=== PATIENT | male | born 1995 | race Caucasian/White ===

== ENCOUNTER 2022-05-22 19:43 | Inpatient (IN) ==
[2022-05-22] MEDS ORDERED: Fluconazole 100 MG TABLET PO STA (20:37)
[2022-05-22 20:58] LABS: Basophils % 0.4 %; Eosinophils # 0.3 K/mcL (0.0-0.6); Eosinophils % 3.6 %; Hemoglobin 10.7 g/dL (12.9-16.9); Immature Granulocytes % 0.3 % (0-4); Lymphocytes # 3.4 K/mcL (0.6-4.6); Lymphocytes % 36.7 %; Mean Corpuscular HGB Conc 30.6 g/dL (31.6-35.5); Mean Corpuscular Volume 81.8 fL (83.0-100.0); Mean Platelet Volume 9.6 fL (9.4-12.4); Monocytes # 0.6 K/mcL (0.0-1.3); Neutrophils # 4.8 K/mcL (1.6-8.9); Platelet Count 334 K/mcL (140-400); Red Blood Count 4.28 M/mcL (4.19-5.50); Red Cell Distribution Width 16.8 % (11.5-14.5); White Blood Count 9.2 K/mcL (4.3-11.1)
[2022-05-22 21:16] LABS: Platelet Estimate Normal (Normal)
[2022-05-22 21:17] LABS: BUN/Creatinine Ratio 19 (6-26); Blood Urea Nitrogen 13 mg/dL (6-20); Calcium 9.4 mg/dL (8.6-10.3); Carbon Dioxide 26 mEq/L (23-29); Chloride 101 mEq/L (98-107); Glucose 69 mg/dL (70-105); Osmolality,Calculated 284 (280-300); Potassium 3.9 mEq/L (3.5-5.1); Sodium 138 mEq/L (136-145)
[2022-05-22] MEDS ORDERED: Naloxone 0.4 MG/ML INJ IVP PRN (22:48)
[2022-05-22] MEDS ORDERED: Ondansetron 4 MG/2 ML VIAL IVP PRN (22:48)
[2022-05-23] MEDS: Acetaminophen 325 MG TABLET PO PRN ×2 (01:39→09:43)
[2022-05-23] MEDS: Melatonin 3 MG TABLET PO PRN (01:44)
[2022-05-23 07:08] LABS: Basophils # 0.1 K/mcL (0.0-0.2); Basophils % 0.4 %; Eosinophils # 0.5 K/mcL (0.0-0.6); Eosinophils % 4.3 %; Hematocrit 31.1 % (37.5-50.1); Hemoglobin 9.4 g/dL (12.9-16.9); Immature Granulocytes % 0.4 % (0-4); Lymphocytes # 3.6 K/mcL (0.6-4.6); Lymphocytes % 30.2 %; Mean Corpuscular HGB Conc 30.2 g/dL (31.6-35.5); Mean Corpuscular Hemoglobin 24.6 pg (28.0-33.3); Mean Corpuscular Volume 81.4 fL (83.0-100.0); Mean Platelet Volume 9.7 fL (9.4-12.4); Monocytes # 1.1 K/mcL (0.0-1.3); Monocytes % 9.5 %; Neutrophils # 6.5 K/mcL (1.6-8.9); Platelet Count 491 K/mcL (140-400); Red Blood Count 3.82 M/mcL (4.19-5.50); Segmented Neutrophils % 55.2 %; White Blood Count 11.8 K/mcL (4.3-11.1)
[2022-05-23 07:17] LABS: INR 1.6; Prothrombin Time 17.3 Seconds (9.4-12.1)
[2022-05-23 07:20] LABS: Activated Partial Thrombo Time 33.8 Seconds (26.0-36.0)
[2022-05-23 07:28] LABS: Alanine Aminotransferase 7 Units/L (7-52); Albumin 3.2 g/dL (3.5-5.7); Albumin/Globulin Ratio 0.9 (1.1-2.2); Alkaline Phosphatase 71 Units/L (34-104); Aspartate Amino Transferase 8 Units/L (13-39); BUN/Creatinine Ratio 16 (6-26); Bilirubin,Total 0.4 mg/dL (0.3-1.0); Blood Urea Nitrogen 11 mg/dL (6-20); Calcium 8.3 mg/dL (8.6-10.3); Carbon Dioxide 28 mEq/L (23-29); Chloride 104 mEq/L (98-107); Globulin 3.5 g/dL (2.4-3.5); Glucose 91 mg/dL (70-105); Magnesium 1.7 mg/dL (1.6-2.6); Osmolality,Calculated 289 (280-300); Phosphorous 4.2 mg/dL (2.7-4.5); Potassium 3.6 mEq/L (3.5-5.1); Sodium 140 mEq/L (136-145); Total Protein 6.7 g/dL (6.4-8.9)
[2022-05-23] MEDS: Lactobacillus 1 EACH CAP.SPRINK PO SCH ×2 (09:43→21:49)
[2022-05-23] MEDS: Fluconazole 100 MG TABLET PO SCH (09:43)
[2022-05-23] MEDS ORDERED: traZODone 50 MG TABLET PO PRN (10:41)
[2022-05-23] MEDS ORDERED: Furosemide 20 MG TABLET PO PRN (10:41)
[2022-05-23] MEDS: *HR* OxyCODONE Immed Rel 5 MG TABLET PO PRN ×3 (10:59→23:55)
[2022-05-23] MEDS: atenoloL 25 MG TABLET PO SCH (11:03)
[2022-05-23] MEDS: Aspirin Enteric Coated 81 MG Tablet PO SCH (11:03)
[2022-05-23] MEDS: Nicotine 14 MG PATCH.TD24 TD SCH (11:03)
[2022-05-23] MEDS: Gabapentin 300 MG CAPSULE PO SCH ×2 (16:06→21:50)
[2022-05-24 07:35] LABS: Basophils % 0.4 %; Eosinophils # 0.4 K/mcL (0.0-0.6); Eosinophils % 4.4 %; Hematocrit 29.7 % (37.5-50.1); Hemoglobin 9.4 g/dL (12.9-16.9); Immature Granulocytes % 0.4 % (0-4); Lymphocytes # 2.4 K/mcL (0.6-4.6); Mean Corpuscular HGB Conc 31.6 g/dL (31.6-35.5); Mean Corpuscular Hemoglobin 25.5 pg (28.0-33.3); Mean Corpuscular Volume 80.7 fL (83.0-100.0); Mean Platelet Volume 9.4 fL (9.4-12.4); Monocytes # 0.6 K/mcL (0.0-1.3); Monocytes % 7.7 %; Neutrophils # 4.6 K/mcL (1.6-8.9); Platelet Count 444 K/mcL (140-400); Red Blood Count 3.68 M/mcL (4.19-5.50); Red Cell Distribution Width 16.8 % (11.5-14.5); Segmented Neutrophils % 57.1 %; White Blood Count 8.1 K/mcL (4.3-11.1)
[2022-05-24 07:50] LABS: BUN/Creatinine Ratio 17 (6-26); Blood Urea Nitrogen 11 mg/dL (6-20); Calcium 9.1 mg/dL (8.6-10.3); Carbon Dioxide 28 mEq/L (23-29); Chloride 102 mEq/L (98-107); Glucose 89 mg/dL (70-105); Osmolality,Calculated 285 (280-300); Potassium 4.1 mEq/L (3.5-5.1); Sodium 138 mEq/L (136-145)
[2022-05-24] MEDS: Nicotine 14 MG PATCH.TD24 TD SCH (08:24)
[2022-05-24] MEDS: Fluconazole 100 MG TABLET PO SCH (08:24)
[2022-05-24] MEDS: atenoloL 25 MG TABLET PO SCH (08:24)
[2022-05-24] MEDS: *HR* OxyCODONE Immed Rel 5 MG TABLET PO PRN ×2 (08:25→16:38)
[2022-05-24] MEDS: Aspirin Enteric Coated 81 MG Tablet PO SCH (08:25)
[2022-05-24] MEDS: Gabapentin 300 MG CAPSULE PO SCH ×3 (08:25→21:20)
[2022-05-24] MEDS: Lactobacillus 1 EACH CAP.SPRINK PO SCH ×2 (08:25→21:20)
[2022-05-24] MEDS: Melatonin 3 MG TABLET PO PRN (21:20)
[2022-05-25] MEDS ORDERED: *HR* Enoxaparin 40 MG/0.4 ML SYRINGE SQ SCH (06:00)
[2022-05-25] MEDS: atenoloL 25 MG TABLET PO SCH (08:46)
[2022-05-25] MEDS: Aspirin Enteric Coated 81 MG Tablet PO SCH (08:46)
[2022-05-25] MEDS: Fluconazole 100 MG TABLET PO SCH (08:46)
[2022-05-25] MEDS: Lactobacillus 1 EACH CAP.SPRINK PO SCH ×2 (08:46→21:42)
[2022-05-25] MEDS: Gabapentin 300 MG CAPSULE PO SCH ×3 (08:46→21:42)
[2022-05-25] MEDS: *HR* OxyCODONE Immed Rel 5 MG TABLET PO PRN ×3 (08:46→21:41)
[2022-05-25] MEDS: Nicotine 14 MG PATCH.TD24 TD SCH (08:49)
[2022-05-25] MEDS: *HR* Heparin 5,000 UNIT/ML VIAL SQ SCH (18:16)
[2022-05-25] MEDS: Melatonin 3 MG TABLET PO PRN (21:42)
[2022-05-26] MEDS: *HR* Heparin 5,000 UNIT/ML VIAL SQ SCH ×2 (05:27→17:40)
[2022-05-26] MEDS: Fluconazole 100 MG TABLET PO SCH (09:57)
[2022-05-26] MEDS: Aspirin Enteric Coated 81 MG Tablet PO SCH (09:57)
[2022-05-26] MEDS: atenoloL 25 MG TABLET PO SCH (09:58)
[2022-05-26] MEDS: Lactobacillus 1 EACH CAP.SPRINK PO SCH ×2 (09:58→21:23)
[2022-05-26] MEDS: Gabapentin 300 MG CAPSULE PO SCH ×3 (09:58→21:23)
[2022-05-26] MEDS: Nicotine 14 MG PATCH.TD24 TD SCH (10:05)
[2022-05-26] MEDS: *HR* OxyCODONE Immed Rel 5 MG TABLET PO PRN ×2 (11:28→17:56)
[2022-05-26] MEDS: Melatonin 3 MG TABLET PO PRN (21:23)
[2022-05-27] MEDS: *HR* OxyCODONE Immed Rel 5 MG TABLET PO PRN ×3 (03:14→17:27)
[2022-05-27] MEDS: *HR* Heparin 5,000 UNIT/ML VIAL SQ SCH ×2 (05:51→17:26)
[2022-05-27 07:40] LABS: Basophils # 0.1 K/mcL (0.0-0.2); Basophils % 0.7 %; Eosinophils # 0.3 K/mcL (0.0-0.6); Eosinophils % 3.3 %; Hematocrit 28.9 % (37.5-50.1); Hemoglobin 8.8 g/dL (12.9-16.9); Immature Granulocytes % 0.3 % (0-4); Lymphocytes # 2.4 K/mcL (0.6-4.6); Lymphocytes % 32.1 %; Mean Corpuscular HGB Conc 30.4 g/dL (31.6-35.5); Mean Corpuscular Hemoglobin 24.5 pg (28.0-33.3); Mean Corpuscular Volume 80.5 fL (83.0-100.0); Mean Platelet Volume 9.7 fL (9.4-12.4); Monocytes # 0.6 K/mcL (0.0-1.3); Neutrophils # 4.2 K/mcL (1.6-8.9); Platelet Count 392 K/mcL (140-400); Red Blood Count 3.59 M/mcL (4.19-5.50); Red Cell Distribution Width 16.5 % (11.5-14.5); Segmented Neutrophils % 55.6 %; White Blood Count 7.5 K/mcL (4.3-11.1)
[2022-05-27] MEDS: Nicotine 14 MG PATCH.TD24 TD SCH (07:48)
[2022-05-27] MEDS: atenoloL 25 MG TABLET PO SCH (07:49)
[2022-05-27] MEDS: Fluconazole 100 MG TABLET PO SCH (07:49)
[2022-05-27] MEDS: Aspirin Enteric Coated 81 MG Tablet PO SCH (07:49)
[2022-05-27] MEDS: Gabapentin 300 MG CAPSULE PO SCH ×3 (07:49→22:10)
[2022-05-27] MEDS: Lactobacillus 1 EACH CAP.SPRINK PO SCH ×2 (07:49→22:10)
[2022-05-27 07:58] LABS: BUN/Creatinine Ratio 13 (6-26); Blood Urea Nitrogen 9 mg/dL (6-20); Calcium 9.1 mg/dL (8.6-10.3); Carbon Dioxide 30 mEq/L (23-29); Chloride 102 mEq/L (98-107); Glucose 119 mg/dL (70-105); Magnesium 1.7 mg/dL (1.6-2.6); Osmolality,Calculated 290 (280-300); Potassium 3.5 mEq/L (3.5-5.1); Sodium 140 mEq/L (136-145)
[2022-05-27] MEDS: Melatonin 3 MG TABLET PO PRN (22:10)
[2022-05-27] MEDS: Acetaminophen 325 MG TABLET PO PRN (22:20)
[2022-05-28] MEDS: *HR* Heparin 5,000 UNIT/ML VIAL SQ SCH ×2 (06:36→16:50)
[2022-05-28] MEDS: Aspirin Enteric Coated 81 MG Tablet PO SCH (08:39)
[2022-05-28] MEDS: Nicotine 14 MG PATCH.TD24 TD SCH (08:39)
[2022-05-28] MEDS: Gabapentin 300 MG CAPSULE PO SCH ×2 (08:40→16:49)
[2022-05-28] MEDS: Fluconazole 100 MG TABLET PO SCH (08:40)
[2022-05-28] MEDS: atenoloL 25 MG TABLET PO SCH (08:40)
[2022-05-28] MEDS: Lactobacillus 1 EACH CAP.SPRINK PO SCH (08:40)
[2022-05-28] MEDS: *HR* OxyCODONE Immed Rel 5 MG TABLET PO PRN ×2 (08:51→16:50)
[2022-05-28 16:07] VITALS: BP 131/81; PULSE 87; RESP 18; TEMP 97.6; O2SAT 100
== END 2022-05-28 18:14 | disposition other institution (70) | DRG 193 ==
LOC: INPPIK 19:43 → EMEROOPIK 19:43 → INPPIK 23:20
PROVIDERS: ADMIT Internal Medicine; ATTEND Internal Medicine

== ENCOUNTER 2022-05-28 14:53 | Inpatient (IN) ==
[2022-05-28] MEDS ORDERED: Furosemide 20 MG TABLET PO PRN (15:19)
[2022-05-28] MEDS ORDERED: Melatonin 3 MG TABLET PO PRN (15:19)
[2022-05-28] MEDS ORDERED: SOD CHLORIDE IV SCH (15:30)
[2022-05-28] MEDS ORDERED: VANCOMYCIN IV SCH (15:30)
[2022-05-28] MEDS ORDERED: [UNRECOGNIZED DRUG - OTHER] IV SCH (15:30)
[2022-05-28] MEDS ORDERED: *HR* Heparin 5,000 UNIT/ML VIAL SQ SCH (18:00)
[2022-05-28] MEDS: Ketorolac 30 MG/ML VIAL IVP SCH (18:48)
[2022-05-28] MEDS: Lactobacillus 1 EACH CAP.SPRINK PO SCH (23:22)
[2022-05-28] MEDS: Gabapentin 300 MG CAPSULE PO SCH (23:23)
[2022-05-28] MEDS: *HR* OxyCODONE Immed Rel 5 MG TABLET PO SCH (23:24)
[2022-05-29] MEDS: Ketorolac 30 MG/ML VIAL IVP SCH ×4 (01:49→18:38)
[2022-05-29] MEDS: *HR* OxyCODONE Immed Rel 5 MG TABLET PO SCH ×4 (03:32→21:35)
[2022-05-29] MEDS: Gabapentin 300 MG CAPSULE PO SCH ×3 (07:43→21:35)
[2022-05-29] MEDS: Lactobacillus 1 EACH CAP.SPRINK PO SCH ×2 (07:43→21:35)
[2022-05-29] MEDS: *HR* Heparin 5,000 UNIT/ML VIAL SQ SCH ×2 (07:56→18:32)
[2022-05-29] MEDS: Nicotine 14 MG PATCH.TD24 TD SCH (10:08)
[2022-05-29] MEDS: Aspirin Enteric Coated 81 MG Tablet PO SCH (10:08)
[2022-05-29] MEDS: atenoloL 25 MG TABLET PO SCH (10:08)
[2022-05-29] MEDS: Fluconazole 150 MG TABLET PO SCH (10:08)
[2022-05-30] MEDS: Ketorolac 30 MG/ML VIAL IVP SCH ×3 (00:21→12:15)
[2022-05-30] MEDS: *HR* OxyCODONE Immed Rel 5 MG TABLET PO SCH ×4 (04:13→21:30)
[2022-05-30] MEDS: *HR* Heparin 5,000 UNIT/ML VIAL SQ SCH ×2 (06:37→18:11)
[2022-05-30] MEDS: Gabapentin 300 MG CAPSULE PO SCH ×3 (08:52→21:29)
[2022-05-30] MEDS: Fluconazole 150 MG TABLET PO SCH (08:52)
[2022-05-30] MEDS: Aspirin Enteric Coated 81 MG Tablet PO SCH (08:53)
[2022-05-30] MEDS: Nicotine 14 MG PATCH.TD24 TD SCH (08:53)
[2022-05-30] MEDS: atenoloL 25 MG TABLET PO SCH (08:53)
[2022-05-30] MEDS: Lactobacillus 1 EACH CAP.SPRINK PO SCH ×2 (08:53→21:26)
[2022-05-30 10:25] LABS: Basophils % 0.4 %; Eosinophils # 0.2 K/mcL (0.0-0.6); Eosinophils % 2.8 %; Hematocrit 31.2 % (37.5-50.1); Hemoglobin 9.5 g/dL (12.9-16.9); Immature Granulocytes % 0.3 % (0-4); Lymphocytes # 2.8 K/mcL (0.6-4.6); Lymphocytes % 39.4 %; Mean Corpuscular HGB Conc 30.4 g/dL (31.6-35.5); Mean Corpuscular Volume 78.8 fL (83.0-100.0); Mean Platelet Volume 9.5 fL (9.4-12.4); Monocytes # 0.5 K/mcL (0.0-1.3); Neutrophils # 3.6 K/mcL (1.6-8.9); Platelet Count 414 K/mcL (140-400); Red Blood Count 3.96 M/mcL (4.19-5.50); Red Cell Distribution Width 15.9 % (11.5-14.5); Segmented Neutrophils % 50.1 %; White Blood Count 7.2 K/mcL (4.3-11.1)
[2022-05-30 10:44] LABS: Alanine Aminotransferase 7 Units/L (7-52); Albumin 3.2 g/dL (3.5-5.7); Albumin/Globulin Ratio 0.9 (1.1-2.2); Alkaline Phosphatase 85 Units/L (34-104); Aspartate Amino Transferase 11 Units/L (13-39); BUN/Creatinine Ratio 12 (6-26); Bilirubin,Total 0.2 mg/dL (0.3-1.0); Blood Urea Nitrogen 9 mg/dL (6-20); Calcium 9.1 mg/dL (8.6-10.3); Carbon Dioxide 27 mEq/L (23-29); Chloride 106 mEq/L (98-107); Globulin 3.5 g/dL (2.4-3.5); Glucose 89 mg/dL (70-105); Osmolality,Calculated 288 (280-300); Sodium 140 mEq/L (136-145); Total Protein 6.7 g/dL (6.4-8.9)
[2022-05-30] MEDS ORDERED: Vancomycin 500 MG in 0.9 % Sodium Chloride Mini Bag 100 ML IVPB ONE (21:00)
[2022-05-30] MEDS: Melatonin 3 MG TABLET PO SCH (21:28)
[2022-05-30] MEDS: traZODone 50 MG TABLET PO PRN (21:28)
[2022-05-30] MEDS: Ketorolac 30 MG/ML VIAL IVP PRN (22:30)
[2022-05-31] MEDS: *HR* Heparin 5,000 UNIT/ML VIAL SQ SCH ×2 (06:09→18:12)
[2022-05-31] MEDS: *HR* OxyCODONE Immed Rel 5 MG TABLET PO SCH ×4 (08:50→20:16)
[2022-05-31] MEDS: Fluconazole 150 MG TABLET PO SCH (09:05)
[2022-05-31] MEDS: Vancomycin 1,250 MG/262.5 ML IV.SOLN IVPB SCH ×2 (09:05→20:17)
[2022-05-31] MEDS: Lactobacillus 1 EACH CAP.SPRINK PO SCH ×2 (09:06→20:13)
[2022-05-31] MEDS: Aspirin Enteric Coated 81 MG Tablet PO SCH (09:06)
[2022-05-31] MEDS: Nicotine 14 MG PATCH.TD24 TD SCH (09:06)
[2022-05-31] MEDS: Gabapentin 300 MG CAPSULE PO SCH ×3 (09:06→20:14)
[2022-05-31] MEDS: atenoloL 25 MG TABLET PO SCH (09:07)
[2022-05-31] MEDS: Ketorolac 30 MG/ML VIAL IVP PRN ×2 (10:45→16:30)
[2022-05-31] MEDS: Acetaminophen 325 MG TABLET PO PRN (15:19)
[2022-05-31] MEDS: Melatonin 3 MG TABLET PO SCH (20:13)
[2022-05-31] MEDS: traZODone 50 MG TABLET PO PRN (20:14)
[2022-06-01] MEDS: *HR* Heparin 5,000 UNIT/ML VIAL SQ SCH ×2 (06:03→18:32)
[2022-06-01] MEDS: Ketorolac 30 MG/ML VIAL IVP PRN ×3 (06:10→23:57)
[2022-06-01] MEDS: Vancomycin 1,250 MG/262.5 ML IV.SOLN IVPB SCH ×2 (10:47→21:20)
[2022-06-01] MEDS: Lactobacillus 1 EACH CAP.SPRINK PO SCH ×2 (10:52→21:18)
[2022-06-01] MEDS: Aspirin Enteric Coated 81 MG Tablet PO SCH (10:52)
[2022-06-01] MEDS: Fluconazole 150 MG TABLET PO SCH (10:52)
[2022-06-01] MEDS: Gabapentin 300 MG CAPSULE PO SCH ×3 (10:52→21:18)
[2022-06-01] MEDS: *HR* OxyCODONE Immed Rel 5 MG TABLET PO SCH ×4 (10:53→21:29)
[2022-06-01] MEDS: Nicotine 14 MG PATCH.TD24 TD SCH (10:56)
[2022-06-01] MEDS: atenoloL 25 MG TABLET PO SCH (10:56)
[2022-06-01] MEDS: Melatonin 3 MG TABLET PO SCH (21:19)
[2022-06-02] MEDS: *HR* OxyCODONE Immed Rel 5 MG TABLET PO SCH ×4 (03:08→23:40)
[2022-06-02] MEDS: *HR* Heparin 5,000 UNIT/ML VIAL SQ SCH ×2 (06:26→18:03)
[2022-06-02 07:45] VITALS: RESP 16
[2022-06-02] MEDS: Fluconazole 100 MG TABLET PO SCH (09:33)
[2022-06-02] MEDS: Aspirin Enteric Coated 81 MG Tablet PO SCH (09:33)
[2022-06-02] MEDS: atenoloL 25 MG TABLET PO SCH (09:33)
[2022-06-02] MEDS: Lactobacillus 1 EACH CAP.SPRINK PO SCH ×2 (09:33→23:39)
[2022-06-02] MEDS: Nicotine 14 MG PATCH.TD24 TD SCH (09:33)
[2022-06-02] MEDS: Gabapentin 300 MG CAPSULE PO SCH ×3 (09:33→23:40)
[2022-06-02] MEDS: Vancomycin 1,250 MG/262.5 ML IV.SOLN IVPB SCH ×2 (09:34→23:41)
[2022-06-02] MEDS: Ketorolac 30 MG/ML VIAL IVP PRN (14:00)
[2022-06-02] MEDS: Acetaminophen 325 MG TABLET PO PRN (18:06)
[2022-06-02 18:42] VITALS: TEMP 98.3
[2022-06-02] MEDS ORDERED: amLODIPine 5 MG TABLET PO SCH (21:00)
[2022-06-02] MEDS: Melatonin 3 MG TABLET PO SCH (23:39)
[2022-06-03] MEDS: *HR* OxyCODONE Immed Rel 5 MG TABLET PO SCH ×2 (03:46→08:13)
[2022-06-03 06:20] LABS: Hematocrit 32.9 % (37.5-50.1); Hemoglobin 10.2 g/dL (12.9-16.9); Mean Corpuscular Hemoglobin 24.5 pg (28.0-33.3); Mean Corpuscular Volume 79.1 fL (83.0-100.0); Mean Platelet Volume 9.6 fL (9.4-12.4); Platelet Count 331 K/mcL (140-400); Red Blood Count 4.16 M/mcL (4.19-5.50); Red Cell Distribution Width 16.6 % (11.5-14.5); White Blood Count 6.7 K/mcL (4.3-11.1)
[2022-06-03 06:40] LABS: BUN/Creatinine Ratio 12 (6-26); Blood Urea Nitrogen 9 mg/dL (6-20); Calcium 9.7 mg/dL (8.6-10.3); Carbon Dioxide 29 mEq/L (23-29); Chloride 104 mEq/L (98-107); Glucose 83 mg/dL (70-105); Osmolality,Calculated 290 (280-300); Sodium 141 mEq/L (136-145)
[2022-06-03 06:47] VITALS: BP 131/81; PULSE 74; O2SAT 97
[2022-06-03] MEDS: *HR* Heparin 5,000 UNIT/ML VIAL SQ SCH (07:44)
[2022-06-03] MEDS: Aspirin Enteric Coated 81 MG Tablet PO SCH (08:13)
[2022-06-03] MEDS: Gabapentin 300 MG CAPSULE PO SCH (08:13)
[2022-06-03] MEDS: Lactobacillus 1 EACH CAP.SPRINK PO SCH (08:13)
[2022-06-03] MEDS: Fluconazole 100 MG TABLET PO SCH (08:13)
[2022-06-03] MEDS: atenoloL 25 MG TABLET PO SCH (08:14)
[2022-06-03] MEDS: Nicotine 14 MG PATCH.TD24 TD SCH (13:24)
[2022-06-03] MEDS: Vancomycin 1,250 MG/262.5 ML IV.SOLN IVPB SCH (13:26)
== END 2022-06-03 14:58 | disposition home or self-care (01) | DRG 193 ==
LOC: INPPIK 18:22
PROVIDERS: ADMIT Internal Medicine; ATTEND Internal Medicine